=== PATIENT | female | born 1945 | race Caucasian/White ===

== ENCOUNTER 2022-08-14 10:32 | Inpatient (IN) | payer OTHER ==
[~2022-08-14] VITALS: Ht 172.7 cm; Wt 85.7 kg
[2022-08-14 10:34] VITALS: BP 155/80
[2022-08-14] MEDS ORDERED: LORazepam 2 MG/ML VIAL IVP ONE (11:50)
[2022-08-14] MEDS ORDERED: levETIRAcetam 1,000 MG in NACL 0.9% 100 ML IV ONE (11:50)
[2022-08-14 12:11] LABS: BASOPHILS # (AUTO) 0.1 K/uL (0.00-0.22); BASOPHILS % (AUTO) 0.6 % (0.0-2.0); EOSINOPHILS # (AUTO) 0.1 K/uL (0-0.4); EOSINOPHILS % (AUTO) 1.2 % (0.0-4.0); HEMATOCRIT 52.6 % (36-48); HEMOGLOBIN 17.9 g/dL (12.0-16.0); LYMPHOCYTES # (AUTO) 2.3 K/uL (2.5-16.5); LYMPHOCYTES % (AUTO) 23.8 % (20.5-51.1); MEAN CORPUSCULAR HEMOGLOBIN 40 pg (27-31); MEAN CORPUSCULAR HGB CONC 34 g/dL (33-37); MEAN CORPUSCULAR VOLUME 116.9 fL (80-94); MONOCYTES % (AUTO) 10.1 % (1.7-9.3); NEUTROPHILS # (AUTO) 6.3 K/uL (1.8-7.7); NEUTROPHILS % (AUTO) 64.3 % (42.2-75.2); PLATELET COUNT (AUTO) 219 K/uL (140-450); RED CELL DISTRIBUTION WIDTH 19.4 % (11.6-13.7); WHITE BLOOD COUNT (AUTO) 9.8 K/uL (4.8-10.8)
[2022-08-14 12:25] LABS: ALBUMIN 3.4 g/dL (3.4-5.0); ANION GAP 17.2 (8-16); ASPARTATE AMINOTRANSFERASE 30 U/L (15-37); CARBON DIOXIDE 26.9 mmol/L (21-32); CHLORIDE 103 mmol/L (98-107); GLUCOSE 128 mg/dL (74-106); POTASSIUM 4.1 mmol/L (3.5-5.1); SODIUM SERUM 143 mmol/L (136-145); TOTAL BILIRUBIN 0.5 mg/dL (0.0-1.0); UREA NITROGEN, BLOOD 9 mg/dL (7-18)
[2022-08-14] MEDS ORDERED: LEVO0.124 PO (13:00)
[2022-08-14] MEDS ORDERED: METO-747 PO (13:00)
[2022-08-14] MEDS ORDERED: LORA-476 (13:00)
[2022-08-14] MEDS ORDERED: LEVE500T18 PO (13:00)
[2022-08-14] MEDS ORDERED: DOCUSATE SODIUM 100 MG GELCAP PO PRN (13:15)
[2022-08-14] MEDS ORDERED: NACL 0.9% 1,000 ML IV SCH (13:15)
[2022-08-14] MEDS ORDERED: ONDANSETRON 4 MG/2 ML VIAL IM/IVP PRN (13:15)
[2022-08-14] MEDS ORDERED: ACETAMINOPHEN 325 MG TAB PO PRN (13:15)
[2022-08-14] MEDS ORDERED: ZOLPIDEM 5 MG TAB PO PRN (13:15)
[2022-08-14] MEDS ORDERED: POTASSIUM CHLORIDE 10 MEQ TABER PO PRN (13:15)
[2022-08-14] MEDS ORDERED: guaiFENesin DM 200/20 MG-10 ML 10 ML UDC PO PRN (13:15)
[2022-08-14] MEDS ORDERED: HYDROcodone/APAP 7.5/325 MG 1 TAB PO PRN (13:15)
[2022-08-14 14:06] LABS: MAGNESIUM 1.8 mg/dL (1.8-2.4); PHOSPHORUS 2.9 mg/dL (2.5-4.9)
[2022-08-14 16:00] VITALS: BP 124/63
[2022-08-14 19:21] LABS: APPEARANCE,URINE CLEAR (CLEAR); BILIRUBIN,URINE 1+ (NEGATIVE); BLOOD, URINE NEGATIVE (NEGATIVE); COLOR,URINE YELLOW (YELLOW); LEUKOCYTE ESTERASE ,URINE NEGATIVE (NEGATIVE); NITRITE, URINE NEGATIVE (NEGATIVE); UGLUCOSE NEGATIVE (NEGATIVE)
[2022-08-14 20:00] VITALS: BP 105/61
[2022-08-14] MEDS: LORazepam 1 MG TAB PO SCH (20:05)
[2022-08-14] MEDS: levETIRAcetam 500 MG TAB PO SCH (20:05)
[2022-08-14 20:06] LABS: BARBITURATE, URINE NEGATIVE ng/ml (NEG <=200); BENZODIAZEPINE, URINE NEGATIVE ng/mL (NEG <=200); CANNABINOID, URINE NEGATIVE ng/mL (NEG <=50); COCAINE, URINE POSITIVE ng/mL (NEG <=300); OPIATE, URINE POSITIVE ng/mL (NEG <=2000); PHENCYCLIDINE SCREEN,URINE NEGATIVE ng/mL (NEG <=25)
[2022-08-15] VITALS: BP 110/67
[2022-08-15 04:00] VITALS: BP 135/72
[2022-08-15 05:36] LABS: BASOPHILS % (AUTO) 0.6 % (0.0-2.0); EOSINOPHILS # (AUTO) 0.2 K/uL (0-0.4); HEMOGLOBIN 16.1 g/dL (12.0-16.0); LYMPHOCYTES # (AUTO) 1.9 K/uL (2.5-16.5); MEAN CORPUSCULAR HEMOGLOBIN 40 pg (27-31); MEAN CORPUSCULAR HGB CONC 34 g/dL (33-37); MEAN CORPUSCULAR VOLUME 116.4 fL (80-94); MONOCYTES # (AUTO) 0.5 K/uL (0.8-1.0); MONOCYTES % (AUTO) 8.6 % (1.7-9.3); NEUTROPHILS # (AUTO) 3.4 K/uL (1.8-7.7); NEUTROPHILS % (AUTO) 55.8 % (42.2-75.2); PLATELET COUNT (AUTO) 204 K/uL (140-450); RED BLOOD CELL COUNT(AUTO) 4.04 MIL/uL (4.20-5.40); RED CELL DISTRIBUTION WIDTH 19.3 % (11.6-13.7)
[2022-08-15] MEDS: LEVOTHYROXINE 0.025 MG TAB PO SCH (05:38)
[2022-08-15 05:55] LABS: ANION GAP 12.5 (8-16); CARBON DIOXIDE 28.6 mmol/L (21-32); CHLORIDE 105 mmol/L (98-107); CREATININE 0.9 mg/dL (0.6-1.3); GLUCOSE 109 mg/dL (74-106); POTASSIUM 3.1 mmol/L (3.5-5.1); SODIUM SERUM 143 mmol/L (136-145); UREA NITROGEN, BLOOD 8 mg/dL (7-18)
[2022-08-15 08:00] VITALS: BP 120/65
[2022-08-15] MEDS: PANTOPRAZOLE 40 MG TABEC PO SCH (08:45)
[2022-08-15] MEDS: levETIRAcetam 500 MG TAB PO SCH (08:46)
[2022-08-15] MEDS: METOPROLOL SUCCINATE 50 MG TABER PO SCH (08:47)
[2022-08-15] MEDS: FUROSEMIDE 20 MG/2 ML VIAL IVP SCH (08:47)
[2022-08-15] MEDS ORDERED: CLOTRIMAZOLE (VAG) 1% 45 GM TUBE VG SCH (11:30)
[2022-08-15 12:00] VITALS: BP 112/66
[2022-08-15 16:00] VITALS: BP 135/78
[2022-08-15 20:00] VITALS: BP 107/68
[2022-08-15] MEDS: levETIRAcetam 100 MG/ML ORASYR PO SCH (20:02)
[2022-08-15] MEDS: LORazepam 1 MG TAB PO SCH (20:02)
[2022-08-16] VITALS: BP 114/71
[2022-08-16 04:00] VITALS: BP 119/70
[2022-08-16 05:44] LABS: ANION GAP 12.2 (8-16); CARBON DIOXIDE 29.5 mmol/L (21-32); CHLORIDE 105 mmol/L (98-107); CREATININE 0.9 mg/dL (0.6-1.3); GLUCOSE 98 mg/dL (74-106); POTASSIUM 3.7 mmol/L (3.5-5.1); SODIUM SERUM 143 mmol/L (136-145); UREA NITROGEN, BLOOD 7 mg/dL (7-18)
[2022-08-16 05:55] LABS: BASOPHILS % (AUTO) 0.5 % (0.0-2.0); EOSINOPHILS # (AUTO) 0.2 K/uL (0-0.4); EOSINOPHILS % (AUTO) 3.1 % (0.0-4.0); HEMATOCRIT 47.9 % (36-48); HEMOGLOBIN 16.3 g/dL (12.0-16.0); LYMPHOCYTES # (AUTO) 2.1 K/uL (2.5-16.5); LYMPHOCYTES % (AUTO) 33.3 % (20.5-51.1); MEAN CORPUSCULAR HEMOGLOBIN 40 pg (27-31); MEAN CORPUSCULAR HGB CONC 34 g/dL (33-37); MONOCYTES # (AUTO) 0.7 K/uL (0.8-1.0); MONOCYTES % (AUTO) 10.5 % (1.7-9.3); NEUTROPHILS # (AUTO) 3.3 K/uL (1.8-7.7); NEUTROPHILS % (AUTO) 52.6 % (42.2-75.2); PLATELET COUNT (AUTO) 198 K/uL (140-450); RED BLOOD CELL COUNT(AUTO) 4.13 MIL/uL (4.20-5.40); RED CELL DISTRIBUTION WIDTH 19.1 % (11.6-13.7); WHITE BLOOD COUNT (AUTO) 6.3 K/uL (4.8-10.8)
[2022-08-16] MEDS: LEVOTHYROXINE 0.025 MG TAB PO SCH (06:02)
[2022-08-16 08:00] VITALS: BP 101/68
[2022-08-16] MEDS ORDERED: NYSTATIN POW 100 MU/GM 15 GM BTL TP PRN (08:55)
[2022-08-16] MEDS: METOPROLOL SUCCINATE 50 MG TABER PO SCH (09:00)
[2022-08-16] MEDS: FUROSEMIDE 20 MG/2 ML VIAL IVP SCH (09:37)
[2022-08-16] MEDS: PANTOPRAZOLE 40 MG TABEC PO SCH (10:05)
[2022-08-16] MEDS: levETIRAcetam 100 MG/ML ORASYR PO SCH ×2 (10:05→20:23)
[2022-08-16 12:00] VITALS: BP 107/57
[2022-08-16] MEDS: NYSTATIN POW 100 MU/GM 15 GM BTL TP SCH (13:46)
[2022-08-16] MEDS: LOPERAMIDE 2 MG CAP PO PRN ×3 (14:12→20:29)
[2022-08-16 16:00] VITALS: BP 118/82
[2022-08-16] MEDS: LORazepam 1 MG TAB PO SCH (20:23)
[2022-08-16] MEDS ORDERED: CLOTRIMAZOLE (VAG) 1% 45 GM TUBE VG SCH (21:00)
[2022-08-16 22:14] VITALS: BP 103/68
[2022-08-17] VITALS: BP 111/62
[2022-08-17] MEDS: NYSTATIN POW 100 MU/GM 15 GM BTL TP SCH ×2 (01:06→13:09)
[2022-08-17 04:00] VITALS: BP 124/51
[2022-08-17] MEDS: LEVOTHYROXINE 0.025 MG TAB PO SCH (06:08)
[2022-08-17 06:46] LABS: ANION GAP 11.2 (8-16); CARBON DIOXIDE 29.5 mmol/L (21-32); CHLORIDE 103 mmol/L (98-107); GLUCOSE 115 mg/dL (74-106); POTASSIUM 3.7 mmol/L (3.5-5.1); SODIUM SERUM 140 mmol/L (136-145); UREA NITROGEN, BLOOD 8 mg/dL (7-18)
[2022-08-17 06:51] LABS: BASOPHILS % (AUTO) 0.3 % (0.0-2.0); EOSINOPHILS # (AUTO) 0.2 K/uL (0-0.4); EOSINOPHILS % (AUTO) 2.9 % (0.0-4.0); HEMATOCRIT 51.1 % (36-48); HEMOGLOBIN 17.5 g/dL (12.0-16.0); LYMPHOCYTES # (AUTO) 1.6 K/uL (2.5-16.5); LYMPHOCYTES % (AUTO) 22.8 % (20.5-51.1); MEAN CORPUSCULAR HEMOGLOBIN 39 pg (27-31); MEAN CORPUSCULAR HGB CONC 34 g/dL (33-37); MEAN CORPUSCULAR VOLUME 115.1 fL (80-94); MONOCYTES # (AUTO) 0.6 K/uL (0.8-1.0); MONOCYTES % (AUTO) 8.6 % (1.7-9.3); NEUTROPHILS # (AUTO) 4.7 K/uL (1.8-7.7); NEUTROPHILS % (AUTO) 65.4 % (42.2-75.2); PLATELET COUNT (AUTO) 213 K/uL (140-450); RED BLOOD CELL COUNT(AUTO) 4.44 MIL/uL (4.20-5.40); RED CELL DISTRIBUTION WIDTH 18.5 % (11.6-13.7); WHITE BLOOD COUNT (AUTO) 7.2 K/uL (4.8-10.8)
[2022-08-17] MEDS ORDERED: KEP500L PO (07:44)
[2022-08-17 08:00] VITALS: BP 114/62
[2022-08-17] MEDS: levETIRAcetam 100 MG/ML ORASYR PO SCH (09:28)
[2022-08-17] MEDS: METOPROLOL SUCCINATE 50 MG TABER PO SCH (09:28)
[2022-08-17] MEDS: PANTOPRAZOLE 40 MG TABEC PO SCH (09:28)
[2022-08-17] MEDS: FUROSEMIDE 20 MG/2 ML VIAL IVP SCH (10:07)
[2022-08-17 12:00] VITALS: BP 116/64
== END 2022-08-17 13:40 | disposition home health service (06) | DRG 101 ==
LOC: MED 10:32 → MTU 13:15
PROVIDERS: ADMIT Student in an Organized Health Care Education/Training Program; ATTEND Student in an Organized Health Care Education/Training Program
PROC: 5A09357 Assistance with Respiratory Ventilation, Less than 24 Consecutive Hours, Continuous Positive Airway Pressure (ICD-10-PCS; 2022-08-15)
PROC: 4A10X4Z Monitoring of Central Nervous Electrical Activity, External Approach (ICD-10-PCS; principal; 2022-08-16)
DX: G40.909 Epilepsy, unspecified, not intractable, without status epilepticus (principal); E44.0 Moderate protein-calorie malnutrition; I50.32 Chronic diastolic (congestive) heart failure; E03.9 Hypothyroidism, unspecified; F41.9 Anxiety disorder, unspecified; Z20.822 Contact with and (suspected) exposure to COVID-19; G31.9 Degenerative disease of nervous system, unspecified; I48.91 Unspecified atrial fibrillation; Z87.891 Personal history of nicotine dependence; Z68.28 Body mass index [BMI] 28.0-28.9, adult; I11.0 Hypertensive heart disease with heart failure
CPT/HCPCS: 36415; 70450; 71045; 72110; 80048; 80053; 80305; 81003; 83735; 83880; 84100; 84484; 85025; 85651; 87070; 87081; 93005; 95816; 96365; 96375; 97112; 97116; 97163-GP; 97530; 99291; J1940; J1953; J2060; J2405; Q9967